=== PATIENT | male | born 1960 | race Caucasian/White ===

== ENCOUNTER 2018-07-19 14:56 | Emergency (ER) | payer OTHER ==
[~2018-07-19] VITALS: Ht 182.9 cm; Wt 97.1 kg
[~2018-07-19 14:56] MED LIST: CYCL10 PO; HYDR1TAB94 PO; IBUP800 PO
[2018-07-19] MEDS ORDERED: METF500C PO (15:15)
[2018-07-19] MEDS ORDERED: LOSA25 (15:16)
[2018-07-19] MEDS ORDERED: AMLO5 (15:17)
[2018-07-19] MEDS ORDERED: Omeprazole20 M1 (15:18)
[2018-07-19] MEDS ORDERED: TAMS.4ER PO (15:18)
[2018-07-19] MEDS ORDERED: GABA800 (15:19)
[2018-07-19] MEDS ORDERED: CYCL10 PO ×2 (15:20→16:18)
[2018-07-19 15:39] LABS: BASOPHILS ABSOLUTE AUTO 0.06 K/mm3 (0.00-0.23); BASOPHILS PERCENT AUTO 1 % (0-2); EOSINOPHILS ABSOLUTE AUTO 0.16 K/mm3 (0.00-0.68); EOSINOPHILS PERCENT AUTO 2 % (0-6); Hematocrit 39.7 % (37.0-53.0); Hemoglobin 14.1 g/dL (13.5-17.5); IMMATURE GRAN ABSOLUTE AUTO 0.04 K/mm3 (0.00-0.10); IMMATURE GRAN PERCENT AUTO 1 % (0-1); LYMPHOCYTES ABSOLUTE AUTO 1.67 K/mm3 (0.84-5.20); LYMPHOCYTES PERCENT AUTO 22 % (21-46); MONOCYTES ABSOLUTE AUTO 0.75 K/mm3 (0.16-1.47); MONOCYTES PERCENT AUTO 10 % (4-13); Mean Corpuscular HGB 32.7 pg (26.0-34.0); Mean Corpuscular HGB Conc 35.5 g/dL (31.5-36.5); Mean Corpuscular Volume 92 fL (80-100); NEUTROPHILS ABSOLUTE AUTO 5.01 K/mm3 (1.96-9.15); NEUTROPHILS PERCENT AUTO 65 % (41-73); Platelet Count 298 K/mm3 (150-400); RDW Coefficient Variation 10.9 % (11.7-14.2); RDW Standard Deviation 37.2 fL (35.1-46.3); Red Blood Cell Count 4.31 M/mm3 (4.30-5.90); White Blood Cell Count 7.69 K/mm3 (4.00-11.30)
[2018-07-19 16:01] LABS: Anion Gap 11 mmol/L (6-16); Blood Urea Nitrogen 17 mg/dL (8-24); Bun/Creatinine Ratio 23.6 (12.0-20.0); CO2, Blood 24 mmol/L (21-32); Chloride, Blood 101 mmol/L (98-108); Creatinine, Blood 0.72 mg/dL (0.60-1.20); Glomerular Filtration Rate >60 (60-); Glucose, Blood 268 mg/dL (70-99); Potassium, Blood 3.9 mmol/L (3.5-5.5); Sodium, Blood 136 mmol/L (136-145)
[2018-07-19] MEDS ORDERED: Cephalexin500 MG PO (16:17)
== END 2018-07-19 16:27 | disposition home or self-care (01) ==
LOC: ER 14:56
PROVIDERS: Physician Assistant
DX: E11.65 Type 2 diabetes mellitus with hyperglycemia (principal); M79.672 Pain in left foot; M79.671 Pain in right foot; Z79.84 Long term (current) use of oral hypoglycemic drugs; A41.9 Sepsis, unspecified organism
CPT/HCPCS: 36415; 80048; 82947; 85025; 87040; 99283

== ENCOUNTER → 2021-12-06 | Outpatient (CLI) | payer OTHER ==
[~2021-12-06] MED LIST changes: +AMLO5; +Cephalexin500 MG PO; +GABA800; +LOSA25; +METF500C PO; +Omeprazole20 M1; +TAMS.4ER PO
== END | disposition home or self-care (01) ==
LOC: LAB 15:14 → LAB SHORT 15:14
DX: R30.0 Dysuria (principal)
CPT/HCPCS: 87086

== ENCOUNTER → 2022-04-26 | Outpatient (CLI) | payer OTHER ==
[2022-04-26 16:20] LABS: BASOPHILS ABSOLUTE AUTO 0.05 K/mm3 (0.00-0.23); BASOPHILS PERCENT AUTO 1 % (0-2); EOSINOPHILS ABSOLUTE AUTO 0.23 K/mm3 (0.00-0.68); EOSINOPHILS PERCENT AUTO 3 % (0-6); Hematocrit 32.1 % (37.0-53.0); Hemoglobin 11.5 g/dL (13.5-17.5); IMMATURE GRAN PERCENT AUTO 1 % (0-1); LYMPHOCYTES ABSOLUTE AUTO 0.76 K/mm3 (0.84-5.20); LYMPHOCYTES PERCENT AUTO 9 % (21-46); MONOCYTES ABSOLUTE AUTO 1.01 K/mm3 (0.16-1.47); MONOCYTES PERCENT AUTO 12 % (4-13); Mean Corpuscular HGB 31.9 pg (26.0-34.0); Mean Corpuscular HGB Conc 35.8 g/dL (31.5-36.5); Mean Corpuscular Volume 89 fL (80-100); NEUTROPHILS ABSOLUTE AUTO 6.32 K/mm3 (1.96-9.15); NEUTROPHILS PERCENT AUTO 75 % (41-73); Platelet Count 347 K/mm3 (150-400); RDW Coefficient Variation 17.2 % (11.7-14.2); RDW Standard Deviation 56.5 fL (35.1-46.3); White Blood Cell Count 8.47 K/mm3 (4.00-11.30)
[2022-04-26 16:41] LABS: Albumin, Blood 2.8 g/dL (3.4-5.0); Albumin/Globulin Ratio 0.5 (0.8-1.8); Bilirubin, Total 5.3 mg/dL (0.1-1.0); Bun/Creatinine Ratio 33.8 (12.0-20.0); Creatinine, Blood 0.74 mg/dL (0.60-1.20); Globulin, Blood 5.2 g/dL (2.2-4.0); Potassium, Blood 4.2 mmol/L (3.5-5.5)
== END ==
LOC: LAB 16:15 → LAB SHORT 16:15
PROVIDERS: Physician Assistant Medical
DX: R10.84 Generalized abdominal pain (principal); R74.01 Elevation of levels of liver transaminase levels
CPT/HCPCS: 80053; 83690; 85025